=== PATIENT | female | born 1980 | race Two or more races ===

== ENCOUNTER 2021-04-26 07:58 | Emergency (ER) | payer MEDICAID ==
[~2021-04-26] VITALS: Ht 177.8 cm; Wt 110.0 kg
[2021-04-26 08:37] LABS: BASOPHILS % (AUTO) 1 % (0-1); EOSINOPHILS % (AUTO) 1 % (1-7); LYMPHOCYTES % (AUTO) 35 % (22-44); MEAN CORPUSCULAR HGB CONC 33.1 g/dL (32.4-35.8); MEAN PLATELET VOLUME 9.7 fL (7.4-10.4); MONOCYTES % (AUTO) 5 % (2-9); NEUTROPHILS % (AUTO) 58 % (42-75); PLATELET COUNT 270 x10^3/uL (130-400); RED BLOOD COUNT 4.75 x10^6/uL (3.82-5.3); RED CELL DISTRIBUTION WIDTH 13.7 % (9.6-15.2)
[2021-04-26] MEDS ORDERED: ONDANSETRON 2MG/ML, 2ML ONE (08:37)
[2021-04-26] MEDS ORDERED: HYDROmorphone 1 MG/ML, 1ML INJ ONE (08:37)
[2021-04-26 08:50] LABS: ALANINE AMINOTRANSFERASE 17 U/L (12-78); ALBUMIN 3.6 g/dL (3.4-5.0); ANION GAP 7 mmol/L (5-15); CHLORIDE 107 mmol/L (98-107); CREATININE 0.82 mg/dL (0.55-1.02)
[2021-04-26 08:54] LABS: ALKALINE PHOSPHATASE 69 U/L (45-117); BILIRUBIN,TOTAL 0.4 mg/dL (0.2-1.0)
[2021-04-26] MEDS ORDERED: ONDANSETRON 2MG/ML, 2ML IVPush ONE (09:00)
[2021-04-26] MEDS ORDERED: HYDROmorphone 1 MG/ML, 1ML INJ IVPush PRN (09:00)
[2021-04-26] MEDS ORDERED: SODIUM CHLORIDE 0.9% 1,000ML IVBOLUS ONE (09:00)
--- NOTE | 2021-04-26 09:09 | NUR ---
PT TO CT VIA [facility] AT THIS TIME.
--- NOTE | 2021-04-26 09:10 | NUR ---
PT IN GOWN IN [facility]. PT ATTACHED TO ALL VS MONITORS, VSS AT THIS TIME. PT MEDICATED PER MAR. PT VERBALIZES UNDERSTANDING OF ER PROCESS AND POC AND DENIES ANY NEEDS AT THIS TIME. CALL LIGHT IS WITHIN REACH OF PT.
[2021-04-26] MEDS ORDERED: OMNIPAQUE 350 MG/ML, 100ML BOTTLE ONE (09:18)
[2021-04-26] MEDS ORDERED: SODIUM CHLORIDE FLUSH 10ML SYR IVF ONE (09:30)
[2021-04-26 09:56] LABS: INTERNATIONAL NORMALIZED RATIO 0.98 (0.93-1.1); PROTHROMBIN TIME 10.5 Seconds (9.6-11.5)
[2021-04-26 10:26] LABS: MICROSCOPIC INDICATED
--- NOTE | 2021-04-26 11:00 | NUR ---
PT ASLEEP IN [facility] AT THIS TIME. PT VSS AND UPDATED IN EMR.
[2021-04-26 11:01] VITALS: BP 151/87
--- NOTE | 2021-04-26 11:44 | NUR ---
PT D/C WITH D/C SUMMARY AND SCRIPTS. 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 PT IV DC WITH TIP INTACT. PT DENIES ANY OTHER NEEDS PERTAINING TO THIS VISIT AND AMBULATES TO REGISTRATION DESK WITH A STEADY GAIT FOR D/C HOME. PT PHONED FOR AN UBER FOR SAFE TRANSPORT OF PT TO PT HOME.
== END 2021-04-26 11:46 | disposition home or self-care (01) ==
LOC: ED 08:57
DX: G89.29 Other chronic pain (principal); M54.5 Low back pain; R10.9 Unspecified abdominal pain; R31.9 Hematuria, unspecified; W01.0XXA Fall on same level from slipping, tripping and stumbling without subsequent striking against object, initial encounter; Y93.89 Activity, other specified; Y92.89 Other specified places as the place of occurrence of the external cause; Y99.8 Other external cause status
CPT/HCPCS: 36415; 74177; 80053; 81001; 84703; 85025; 85610; 96361; 96374; 96375; 99285; J1170; J2405; J7030; Q9967